=== PATIENT | male | born 1980 | race Caucasian/White ===

== ENCOUNTER 2017-09-21 19:29 | Emergency (ER) | payer MEDICARE, OTHER ==
[~2017-09-21] VITALS: Ht 182.9 cm; Wt 85.0 kg
[2017-09-21 19:53] VITALS: BP 181/93; PULSE 105; RESP 18; TEMP 98.6; O2SAT 97
[2017-09-21 20:30] LABS: AUTOMATED NEUTROPHIL # 8.1 TH/MM3 (1.8-7.7); BASOPHIL % 0.5 % (0.0-2.0); EOSINOPHIL % 0.4 % (0.0-4.0); HEMATOCRIT 42.9 % (39.0-51.0); HEMOGLOBIN 15.1 GM/DL (13.0-17.0); LYMPH % 12.9 % (9.0-44.0); LYMPHOCYTE # 1.3 TH/MM3 (1.0-4.8); MEAN CELL VOLUME 85.2 FL (80.0-100.0); MEAN CORPUSCULAR HGB CONC 35.2 % (32.0-36.0); MEAN PLATELET VOLUME 9.3 FL (7.0-11.0); MONO % 6.9 % (0.0-8.0); MONOCYTE # 0.7 TH/MM3 (0-0.9); NEUT % 79.3 % (16.0-70.0); PLATELET COUNT 162 TH/MM3 (150-450); RED BLOOD COUNT 5.03 MIL/MM3 (4.50-5.90); RED CELL DISTRIBUTION WIDTH 13.8 % (11.6-17.2); WHITE BLOOD COUNT 10.2 TH/MM3 (4.0-11.0)
--- NOTE | 2017-09-21 20:32 | PD ---
HPI Chief Complaint: Psychiatric Symptoms Time Seen by Provider: 20:28 Travel History International Travel<30 days: No Contact w/Intl Traveler<30days: No Traveled to known affect area: No History of Present Illness HPI 37-year-old male presents the ED under Mauricio act for psychiatric evaluation. According to the Mauricio act the patient was mad at his girlfriend was making out with another male. He told his girlfriend that he was going to kill himself. She states that she observed him take an unknown amount of hydrocodone. She stated that he has a firearm at home and wanted to shoot himself in front of her. 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 All communication was through [employer] services. Patient states that he was angry and freaked out but is not suicidal. He denies any history of psychiatric illness. He denies any somatic complaints. He states that he is currently taking hydrocodone for pain in the left hand. He was evaluated at an outside ED and told that he had a contusion, provided with a short course of the medicine. He states that he was also put on blood pressure medication but has not taken any of that and does not know what the medication is. Patient states that he has never been under Mauricio act, just recently moved to the area. [facility] Past Medical History Immunizations Current: Yes Tetanus Vaccination: Unknown Influenza Vaccination: No Social History Alcohol Use: No Tobacco Use: Yes Substance Use: No Allergies-Medications (Allergen,Severity, Reaction): Coded Allergies: No Known Allergies (Unverified , 09/21/17) Reported Meds & Prescriptions Reported Meds & Active Scripts Active Reported Hydrocodone-Acetaminophen 5-325 mg Tab 1 Tab PO Q4H PRN 5 Days Review of Systems Except as stated in HPI: all other systems reviewed are Neg Physical Exam Narrative GENERAL: Well-nourished, well-developed white male no acute distress. SKIN: Focused skin assessment warm/dry. HEAD: Normocephalic. EYES: No scleral icterus. No injection or drainage. NECK: Supple, trachea midline. No JVD or lymphadenopathy. CARDIOVASCULAR: Regular rate and rhythm without murmurs, gallops, or rubs. RESPIRATORY: Breath sounds clear and equal bilaterally. No accessory muscle use. GASTROINTESTINAL: Abdomen soft, non-tender, nondistended. Active bowel sounds. MUSCULOSKELETAL: No cyanosis, or edema. Moves extremities spontaneously. BACK: Nontender without obvious deformity. No CVA tenderness. Data Data Last Documented VS Vital Signs Date Time Temp Pulse Resp B/P (MAP) Pulse Ox O2 Delivery O2 Flow Rate FiO2 09/22/17 06:26 98.8 94 18 127/70 (89) 97 Orders Orders Complete Blood Count With Diff (09/21/17 19:57) Comprehensive Metabolic Panel (09/21/17 19:57) Thyroid Stimulating Hormone (09/21/17 19:57) Psych Screen (09/21/17 19:57) Drug Screen, Random Urine (09/21/17 19:57) Alcohol (Ethanol) (09/21/17 19:57) Salicylates (Aspirin) (09/21/17 19:57) Tylenol (Acetaminophen) (09/21/17 19:57) Lisinopril (Prinivil) (09/21/17 21:00) Acetaminophen (Tylenol) (09/22/17 01:00) Diet Regular Basic (09/22/17 Breakfast) Diet Regular Basic (09/22/17 Lunch) Labs Laboratory Tests Test 09/21/17 20:00 White Blood Count 10.2 TH/MM3 Red Blood Count 5.03 MIL/MM3 Hemoglobin 15.1 GM/DL Hematocrit 42.9 % Mean Corpuscular Volume 85.2 FL Mean Corpuscular Hemoglobin 30.0 PG Mean Corpuscular Hemoglobin Concent 35.2 % Red Cell Distribution Width 13.8 % Platelet Count 162 TH/MM3 Mean Platelet Volume 9.3 FL Neutrophils (%) (Auto) 79.3 % Lymphocytes (%) (Auto) 12.9 % Monocytes (%) (Auto) 6.9 % Eosinophils (%) (Auto) 0.4 % Basophils (%) (Auto) 0.5 % Neutrophils # (Auto) 8.1 TH/MM3 Lymphocytes # (Auto) 1.3 TH/MM3 Monocytes # (Auto) 0.7 TH/MM3 Eosinophils # (Auto) 0.0 TH/MM3 Basophils # (Auto) 0.0 TH/MM3 CBC Comment DIFF FINAL Differential Comment Blood Urea Nitrogen 16 MG/DL Creatinine 1.22 MG/DL Random Glucose 116 MG/DL Total Protein 8.9 GM/DL Albumin 4.4 GM/DL Calcium Level 9.3 MG/DL Alkaline Phosphatase 106 U/L Aspartate Amino Transf (AST/SGOT) 21 U/L Alanine Aminotransferase (ALT/SGPT) 43 U/L Total Bilirubin 0.9 MG/DL Sodium Level 139 MEQ/L Potassium Level 3.5 MEQ/L Chloride Level 103 MEQ/L Carbon Dioxide Level 25.4 MEQ/L Anion Gap 11 MEQ/L Estimat Glomerular Filtration Rate 68 ML/MIN Thyroid Stimulating Hormone 3rd Gen 1.220 uIU/ML Salicylates Level LESS THAN 1.7 MG/DL Urine Opiates Screen POS Acetaminophen Level LESS THAN 2.0 MCG/ML Urine Barbiturates Screen NEG Urine Amphetamines Screen NEG Urine Benzodiazepines Screen NEG Urine Cocaine Screen NEG Urine Cannabinoids Screen NEG Ethyl Alcohol Level LESS THAN 3 MG/DL MDM Medical Decision Making Medical Screen Exam Complete: Yes Emergency Medical Condition: Yes Differential Diagnosis Adjustment disorder versus anxiety versus bipolar versus depression versus dementia versus electrolyte disorder versus malingering versus mood disorder versus ODD versus psychosis versus PTSD versus schizophrenia versus schizoaffective disorder versus substance-induced mood disorder versus other Narrative Course 37-year-old male presents to the ED under Mauricio act after making suicidal statements after finding his girlfriend making out with another man. Patient denies suicidal ideation. He states he "just freaked out." He denies any psychiatric history. He complains of left wrist pain which was evaluated on outside hospital. He has been taking hydrocodone to treat the pain. He was also prescribed antihypertensives at the time but does not know the name of the medication and has not taken any doses. Patient is deaf, all communication via [employer] services. Patient understands that he is under involuntary hold and will have to be evaluated by psychiatry before discharge. Basic lab work ordered and pending. Patient signed out to KAT Patel at end of shift. Please see her note for disposition. 09/22/2017 12:58 PM. The patient was medically cleared by KAT Patel. He was then evaluated by Dr. Richmond, psychiatry. Mauricio act was lifted. Patient has no psychiatric history. No psychiatric follow-up indicated. He is provided with a cab back to [place]. He is stable and discharged home. Diagnosis Primary Impression: Medical clearance for psychiatric admission Additional Impression: Adjustment disorder Qualified Codes: F43.20 - Adjustment disorder, unspecified Referrals: Primary Care Physician Additional Instructions: Resume at home medications as previously prescribed. Return to the ED for any urgent or emergent medical condition. Disposition: 01 DISCHARGE HOME Condition: Stable Nayeli Santillan September 21, 2017 20:32
[2017-09-21 20:39] LABS: ALBUMIN 4.4 GM/DL (3.4-5.0); ALT (GPT) 43 U/L (12-78); AST (GOT) 21 U/L (15-37); BICARBONATE 25.4 MEQ/L (21.0-32.0); BLOOD UREA NITROGEN 16 MG/DL (7-18); CALCIUM 9.3 MG/DL (8.5-10.1); CHLORIDE 103 MEQ/L (98-107); CREATININE 1.22 MG/DL (0.60-1.30); GLOMERULAR FILTRATION RATE 68 ML/MIN (>89); GLUCOSE,RANDOM 116 MG/DL (74-106); SODIUM (NA) 139 MEQ/L (136-145)
[2017-09-21 20:40] LABS: ACETAMINOPHEN LESS THAN 2.0 MCG/ML (10.0-30.0)
[2017-09-21 20:49] LABS: ALKALINE PHOSPHATASE 106 U/L (45-117); TOTAL BILIRUBIN ADULT 0.9 MG/DL (0.2-1.0); TOTAL PROTEIN 8.9 GM/DL (6.4-8.2)
[2017-09-21] MEDS ORDERED: LISINOPRIL 20 MG TAB PO ONE (21:00)
--- NOTE | 2017-09-21 21:00 | PD ---
Physical Exam Date Seen by Provider: September 21, 2017 Time Seen by Provider: 20:56 Narrative For full history and physical examination please see previous providers note. I assumed care of this patient change his shift. At that time his labs are pending for medical clearance. Data Data Last Documented VS Vital Signs Date Time Temp Pulse Resp B/P (MAP) Pulse Ox O2 Delivery O2 Flow Rate FiO2 09/21/17 19:53 98.6 105 18 181/93 (122) 97 Orders Orders Complete Blood Count With Diff (09/21/17 19:57) Comprehensive Metabolic Panel (09/21/17 19:57) Thyroid Stimulating Hormone (09/21/17 19:57) Psych Screen (09/21/17 19:57) Drug Screen, Random Urine (09/21/17 19:57) Alcohol (Ethanol) (09/21/17 19:57) Salicylates (Aspirin) (09/21/17 19:57) Tylenol (Acetaminophen) (09/21/17 19:57) Labs Laboratory Tests Test 09/21/17 20:00 White Blood Count 10.2 TH/MM3 Red Blood Count 5.03 MIL/MM3 Hemoglobin 15.1 GM/DL Hematocrit 42.9 % Mean Corpuscular Volume 85.2 FL Mean Corpuscular Hemoglobin 30.0 PG Mean Corpuscular Hemoglobin Concent 35.2 % Red Cell Distribution Width 13.8 % Platelet Count 162 TH/MM3 Mean Platelet Volume 9.3 FL Neutrophils (%) (Auto) 79.3 % Lymphocytes (%) (Auto) 12.9 % Monocytes (%) (Auto) 6.9 % Eosinophils (%) (Auto) 0.4 % Basophils (%) (Auto) 0.5 % Neutrophils # (Auto) 8.1 TH/MM3 Lymphocytes # (Auto) 1.3 TH/MM3 Monocytes # (Auto) 0.7 TH/MM3 Eosinophils # (Auto) 0.0 TH/MM3 Basophils # (Auto) 0.0 TH/MM3 CBC Comment DIFF FINAL Differential Comment Blood Urea Nitrogen 16 MG/DL Creatinine 1.22 MG/DL Random Glucose 116 MG/DL Total Protein 8.9 GM/DL Albumin 4.4 GM/DL Calcium Level 9.3 MG/DL Alkaline Phosphatase 106 U/L Aspartate Amino Transf (AST/SGOT) 21 U/L Alanine Aminotransferase (ALT/SGPT) 43 U/L Total Bilirubin 0.9 MG/DL Sodium Level 139 MEQ/L Potassium Level 3.5 MEQ/L Chloride Level 103 MEQ/L Carbon Dioxide Level 25.4 MEQ/L Anion Gap 11 MEQ/L Estimat Glomerular Filtration Rate 68 ML/MIN Thyroid Stimulating Hormone 3rd Gen 1.220 uIU/ML Salicylates Level LESS THAN 1.7 MG/DL Urine Opiates Screen POS Acetaminophen Level LESS THAN 2.0 MCG/ML Urine Barbiturates Screen NEG Urine Amphetamines Screen NEG Urine Benzodiazepines Screen NEG Urine Cocaine Screen NEG Urine Cannabinoids Screen NEG Ethyl Alcohol Level LESS THAN 3 MG/DL [facility] Medical Record Reviewed: Yes Supervised Visit with HAIR: No Interpretation(s) Laboratory Tests Test 09/21/17 20:00 White Blood Count 10.2 TH/MM3 Red Blood Count 5.03 MIL/MM3 Hemoglobin 15.1 GM/DL Hematocrit 42.9 % Mean Corpuscular Volume 85.2 FL Mean Corpuscular Hemoglobin 30.0 PG Mean Corpuscular Hemoglobin Concent 35.2 % Red Cell Distribution Width 13.8 % Platelet Count 162 TH/MM3 Mean Platelet Volume 9.3 FL Neutrophils (%) (Auto) 79.3 % Lymphocytes (%) (Auto) 12.9 % Monocytes (%) (Auto) 6.9 % Eosinophils (%) (Auto) 0.4 % Basophils (%) (Auto) 0.5 % Neutrophils # (Auto) 8.1 TH/MM3 Lymphocytes # (Auto) 1.3 TH/MM3 Monocytes # (Auto) 0.7 TH/MM3 Eosinophils # (Auto) 0.0 TH/MM3 Basophils # (Auto) 0.0 TH/MM3 CBC Comment DIFF FINAL Differential Comment Blood Urea Nitrogen 16 MG/DL Creatinine 1.22 MG/DL Random Glucose 116 MG/DL Total Protein 8.9 GM/DL Albumin 4.4 GM/DL Calcium Level 9.3 MG/DL Alkaline Phosphatase 106 U/L Aspartate Amino Transf (AST/SGOT) 21 U/L Alanine Aminotransferase (ALT/SGPT) 43 U/L Total Bilirubin 0.9 MG/DL Sodium Level 139 MEQ/L Potassium Level 3.5 MEQ/L Chloride Level 103 MEQ/L Carbon Dioxide Level 25.4 MEQ/L Anion Gap 11 MEQ/L Estimat Glomerular Filtration Rate 68 ML/MIN Thyroid Stimulating Hormone 3rd Gen 1.220 uIU/ML Salicylates Level LESS THAN 1.7 MG/DL Urine Opiates Screen POS Acetaminophen Level LESS THAN 2.0 MCG/ML Urine Barbiturates Screen NEG Urine Amphetamines Screen NEG Urine Benzodiazepines Screen NEG Urine Cocaine Screen NEG Urine Cannabinoids Screen NEG Ethyl Alcohol Level LESS THAN 3 MG/DL Vital Signs Date Time Temp Pulse Resp B/P (MAP) Pulse Ox O2 Delivery O2 Flow Rate FiO2 09/21/17 19:53 98.6 105 18 181/93 (122) 97 Differential Diagnosis Suicidal ideations versus depression versus substance abuse versus metabolic abnormality versus other Narrative Course Patient is a 37-year-old male presenting under Mauricio act for psychiatric evaluation secondary to making alleged suicidal ideations after finding his girlfriend kissing another man. Patient is hypertensive on arrival, he has newly diagnosed hypertension but has not started taking his home medications. Patient denies feeling suicidal. CBC with no acute findings, urine drug screen is positive for opiates. Salicylate, acetaminophen and alcohol are unremarkable. Chemistry with no acute findings. Patient will be given given lisinopril now for his hypertension and emergency department. Patient is medically clear for psychiatric evaluation. Diagnosis Primary Impression: Medical clearance for psychiatric admission Additional Impressions: Hypertension Qualified Codes: I10 - Essential (primary) hypertension Substance abuse Scripts No Active Prescriptions or Reported Meds Condition: Roro Godinez September 21, 2017 21:00
[2017-09-21 21:05] VITALS: BP 185/94
[2017-09-22 00:26] VITALS: BP 165/97; PULSE 103; RESP 18; O2SAT 97
[2017-09-22] MEDS ORDERED: ACETAMINOPHEN 325 MG TAB PO ONE (01:00)
[2017-09-22] MEDS ORDERED: HYDR-3516 PO (01:05)
[2017-09-22 02:46] VITALS: TEMP 99.2
[2017-09-22 06:26] VITALS: BP 127/70; PULSE 94; RESP 18; TEMP 98.8; O2SAT 97
--- NOTE | 2017-09-22 10:22 | PD.PSY.CON ---
Provisional Diagnosis Admission Date Date of consultation 09/22/17 [place] I. 1. Adjustment disorder, unspecified [place] II. Deferred History of Present Illness Service Psychiatry Consult Requested By Emergency department Reason for Consult Mauricio act Primary Care Physician Unknown HPI Mr. Nguyen is a 37-year-old male with no reported past psychiatric history who presents under a Mauricio act by law enforcement alleging that the patient became upset after he observed girlfriend making out with another man. He allegedly told the girlfriend that he was going to kill himself and may have taken a quantity of hydrocodone. Urine toxicology was positive for opiates, but there is no documented evidence of any sort of opiate intoxication. Patient was reportedly given a prescription for hydrocodone for acute hand pain. Reviewing the electronic medical record, it appears this is patient's first visit to [facility]. Patient seen and examined with nurse with the assistance of web mobile designer Suzy ID#[id number]. On my examination this morning, the patient is clinically sober with no evidence of intoxication. He denies making any sort of suicidal ingestion. He says that he took one hydrocodone tablet for his hand pain. He says that the officers counted out the tablets in the bottle themselves and found the number to be appropriate. He says that his girlfriend simply overreacted. He denies any suicidal or homicidal ideation, intent or plan. He contracts for safety. I can elicit no depressive symptoms. No hypomanic or manic symptoms in evidence. He denies any hallucinations. No delusional material. No evidence of impairment in reality construction. Remainder of the psychiatric ROS is negative. Besides the hand pain, no acute physical complaints. Patient is requesting discharge from the ED this morning. Past psychiatric history: Patient denies a history of psychiatric diagnosis. He denies a history of inpatient or outpatient psychiatric treatment. He denies a history of suicide attempts. Family history: The patient is adopted and knows nothing of his family psychiatric history. Chemical dependency history: Patient reports that he enjoys the occasional beer and occasionally smokes cannabis. He does not think that he uses either in a problematic fashion. He denies any other substance use. Social history: Patient lives with 2 roommates. He is single. There is apparently a child whose paternity is in question and for whom he may be the father. He attended technical college but is not presently working. He is looking for work. He does keep a handgun for protection as the neighborhood that he resides in is reportedly not terribly safe, but he denies ever having had a suicide plan involving a gun. He denies any or legal history. Nurse made repeated efforts to obtain collateral information regarding the patient but was ultimately unsuccessful. Review of Systems ROS Limitations: Hearing Impaired Other Limited ROS Past Family Social History Coded Allergies: No Known Allergies (Unverified , 09/21/17) Past Medical History Hypertension, hand pain Reported Medications Hydrocodone-Acetaminophen (Hydrocodone-Acetaminophen) 5-325 mg Tab, 1 TAB PO Q4H Y for PAIN for 5 Days, #20 TAB 0 Refills 09/22/17 As above. Patient also reportedly takes medication for hypertension. Patient's Strengths (min. 2) Attending to basic needs. Verbally fluent. Physical Exam Physical examination completed by ED provider. On my examination today, the patient appears to be in no acute physical distress. No motor abnormalities noted. No signs of intoxication or withdrawal noted. Labs and vitals reviewed: Vital Signs Vital Signs Date Time Temp Pulse Resp B/P (MAP) Pulse Ox O2 Delivery O2 Flow Rate FiO2 09/22/17 06:26 98.8 94 18 127/70 (89) 97 Lab Results Test 09/21/17 20:00 White Blood Count 10.2 TH/MM3 Red Blood Count 5.03 MIL/MM3 Hemoglobin 15.1 GM/DL Hematocrit 42.9 % Mean Corpuscular Volume 85.2 FL Mean Corpuscular Hemoglobin 30.0 PG Mean Corpuscular Hemoglobin Concent 35.2 % Red Cell Distribution Width 13.8 % Platelet Count 162 TH/MM3 Mean Platelet Volume 9.3 FL Neutrophils (%) (Auto) 79.3 % Lymphocytes (%) (Auto) 12.9 % Monocytes (%) (Auto) 6.9 % Eosinophils (%) (Auto) 0.4 % Basophils (%) (Auto) 0.5 % Neutrophils # (Auto) 8.1 TH/MM3 Lymphocytes # (Auto) 1.3 TH/MM3 Monocytes # (Auto) 0.7 TH/MM3 Eosinophils # (Auto) 0.0 TH/MM3 Basophils # (Auto) 0.0 TH/MM3 CBC Comment DIFF FINAL Differential Comment Blood Urea Nitrogen 16 MG/DL Creatinine 1.22 MG/DL Random Glucose 116 MG/DL Total Protein 8.9 GM/DL Albumin 4.4 GM/DL Calcium Level 9.3 MG/DL Alkaline Phosphatase 106 U/L Aspartate Amino Transf (AST/SGOT) 21 U/L Alanine Aminotransferase (ALT/SGPT) 43 U/L Total Bilirubin 0.9 MG/DL Sodium Level 139 MEQ/L Potassium Level 3.5 MEQ/L Chloride Level 103 MEQ/L Carbon Dioxide Level 25.4 MEQ/L Anion Gap 11 MEQ/L Estimat Glomerular Filtration Rate 68 ML/MIN Thyroid Stimulating Hormone 3rd Gen 1.220 uIU/ML Salicylates Level LESS THAN 1.7 MG/DL Urine Opiates Screen POS Acetaminophen Level LESS THAN 2.0 MCG/ML Urine Barbiturates Screen NEG Urine Amphetamines Screen NEG Urine Benzodiazepines Screen NEG Urine Cocaine Screen NEG Urine Cannabinoids Screen NEG Ethyl Alcohol Level LESS THAN 3 MG/DL Mental Status Examination Appearance: Appropriate Consciousness: Alert Orientation: x4 Motor Activity: Normal gait Speech: Speech impediment (On verbal speech) Language: Adequate Fund of Knowledge: Adequate Attention and Concentration: Adequate Memory: Unremarkable (Grossly intact on clinical exam) Mood: Appropriate Affect: Appropriate Thought Process & Associations: Intact, Logical, Linear Thought Content: Appropriate Hallucination Type: None Delusion Type: None Suicidal Ideation: No Suicidal Plan: No Suicidal Intention: No Homicidal Ideation: No Homicidal Plan: No Homicidal Intention: No Insight: Adequate Judgment: Adequate Assessment & Plan Problem List: (1) Adjustment disorder ICD Codes: F43.20 - Adjustment disorder, unspecified Assessment & Plan 37-year-old male with psychiatric history as detailed above who presents under a Mauricio act. On my examination today, the patient denies any suicidal or homicidal ideation. It seems unlikely that the patient had a significant opiate ingestion, and the patient denies making any sort of overdose at all. There is no evidence of unstable mental illness as defined under the Mauricio act in this patient at this time. There is no evidence of self-care deficit. He says that his girlfriend simply overreacted. Synthesizing the available information, I rehab liaison that the patient does not presently meet the Mauricio act criteria. I have lifted the Mauricio act. Patient is requesting discharge from the ED today, and I have no basis to retain him over his objection. Patient will be provided with outpatient mental health referral. I have recommended that he secure his firearm given the circumstances of his presentation here. I have counseled the patient regarding warning signs for need to return to the psychiatric emergency room as part of a general safety plan. Patient is otherwise psychiatrically clear for discharge from the ED. Thank you very much for this consultation. Problem Qualifiers (1) Adjustment disorder: Qualified Codes: F43.20 - Adjustment disorder, unspecified Fred Richmond MD September 22, 2017 10:22
[2017-09-22] MEDS ORDERED: IBUPROFEN 800 MG TAB PO ONE (14:15)
== END 2017-09-22 17:04 | disposition home or self-care (01) ==
LOC: NEPD 19:29 → NEPJ 09-22 17:04
DX: I10 Essential (primary) hypertension (principal); F43.20 Adjustment disorder, unspecified; F19.10 Other psychoactive substance abuse, uncomplicated; Z72.0 Tobacco use
CPT/HCPCS: 80053; 80307; 84443; 85025; 99284